=== PATIENT | male | born 1960 ===

== ENCOUNTER 2017-09-30 08:47 | Day surgery (SDC) | payer OTHER ==
[2017-09-20 09:52] VITALS: BMI 53.2
[2017-09-30 09:22] VITALS: RESP 18; TEMP 97.7
[2017-09-30 09:30] LABS: BASO # 0.01 K/mm3 (0.0-2.0); BASO % 0.1 % (0.0-3.0); EOS # 0.2 (0.0-0.7); EOS % 3.4 % (1.5-5.0); GRAN # 4.05 (1.4-6.5); GRAN % 59.1 % (50.0-68.0); LYMPH % 29.5 % (22.0-35.0); MEAN CORPUSCULAR HEMOGLOBIN 30.1 pg (25.0-35.0); MEAN CORPUSCULAR HGB CONC 33.5 g/dl (31.0-37.0); MEAN PLATELET VOLUME 9.7 fl (7.0-11.0); MONO # 0.5 (0.1-0.6); MONO % 7.9 % (1.0-6.0); RED CELL DISTRIBUTION WIDTH 13.5 % (11.5-14.5); WHITE BLOOD COUNT 6.9 10^3/ul (4.5-11.0)
[2017-09-30 09:43] LABS: INR 1.09 (0.93-1.08); PARTIAL THROMBOPLASTIN TIME 30.8 Seconds (25.1-36.5)
[2017-09-30 09:50] LABS: BLOOD UREA NITROGEN 14 mg/dL (7-21); CALCIUM 9.2 mg/dL (8.4-10.5); CARBON DIOXIDE 31 mmol/L (21-33); CHLORIDE 101 mmol/L (95-110); CHOLESTEROL 182 mg/dL (130-200); GFR AFRICAN-AMERICAN > 60; GLUCOSE,RANDOM 101 mg/dL (70-110); POTASSIUM 4.4 mmol/L (3.6-5.0); SODIUM 139 mmol/L (132-148)
[2017-09-30] MEDS ORDERED: Lidocaine 2% Inj (20ml) ONE (10:06)
[2017-09-30] MEDS ORDERED: Midazolam 2 MG/2 ML VIAL ONE ×3 (10:07→11:21)
[2017-09-30] MEDS ORDERED: Iodixanol 320 MG/ML 200 ML BOTTLE IV ONE (10:08)
[2017-09-30] MEDS ORDERED: Sodium Chloride 0.9% 1,000 ML IV SCH (12:45)
[2017-09-30 15:44] VITALS: PULSE 68
[2017-09-30 16:49] VITALS: BP 141/85; O2SAT 94
--- NOTE | 2017-09-30 17:38 | CARDCATH ---
PROCEDURE DATE: 09/30/2017 HISTORY: The patient is a 56-year-old male with morbid obesity, he is here for preop clearance. He suffers from hypertension and hypercholesterolemia. A stress test was abnormal. A cardiac catheterization was recommended. PROCEDURE: Left heart catheterization with coronary arteriography and left ventriculogram. I performed moderate sedationwhich included the presence of an independent trained observer that assisted in the monitoring the pt's level of consciousness and physiological status. After administration of versed and fentenyl, my intraservice time was 25 minutes The right femoral artery was cannulated with 6-Uzbek sheath. There were no complications. Findings on catheterization revealed a left ventricle that contracted normally. Estimated ejection fraction of 60%. His coronary anatomy revealed a right dominant circulation. The RCA revealed intimal irregularities without significant stenoses. The left main artery was unremarkable. The LAD and diagonal vessels revealed intimal irregularities without critical lesions. The circumflex artery was free of significant disease. Angio-Seal was used to close the femoral artery site. The patient tolerated the procedure well. In summary, the procedure revealed nonobstructive CAD with normal LV function. Given these findings, the patient's cardiac status is stable. I have discussed with the patient about the need to lose weight. There were no cardiac contraindications to his planned surgery. Andrews Hull MD MTDD
--- NOTE | 2017-09-30 22:03 | CARD ---
APPROVED REPORT EKG Measurement Heart [id number] <Conclusion> Normal sinus rhythm Left axis deviation Abnormal ECG
== END 2017-09-30 17:30 | disposition home or self-care (01) ==
LOC: CATH 08:47
PROVIDERS: ATTEND Internal Medicine Cardiovascular Disease
DX: I25.10 Atherosclerotic heart disease of native coronary artery without angina pectoris (principal); I10 Essential (primary) hypertension; E78.00 Pure hypercholesterolemia, unspecified; E66.01 Morbid (severe) obesity due to excess calories; Z68.43 Body mass index [BMI] 50.0-59.9, adult
CPT/HCPCS: 36415; 80048; 80061; 85025; 85610; 85730; 86850; 86900; 93005; 93458; 99152; 99153; C1760; C1769; C2629; J1644; J2250; J2405; J3010; J7030; J7040